=== PATIENT | female | born 1970 | race African-American/Black ===

== ENCOUNTER 2021-01-30 13:09 | Outpatient (REF) | payer MEDICARE, MEDICAID, SELFPAY ==
--- NOTE | ~2021-01-30 | CT_ITS ---
EXAMINATION: CT HEAD WITHOUT CONTRAST CLINICAL INFORMATION: Seizure disorder. COMPARISON: There are no previous exam available for comparison. TECHNIQUE: Contiguous axial imaging was performed from the skull base to vertex without intravenous administration of contrast. This CT examination was performed using dose optimization techniques as appropriate, variously including the following: *Automated exposure control *Adjustment of mA and/or kV according to patient size (this includes techniques or standardized protocols for targeted exams where dose is matched to indication/reason for exam; i.e. extremities or head) *Use of iterative reconstruction technique DLP: 998 mGy-cm FINDINGS: There is no evidence of acute intracranial hemorrhage or territorial infarction. No abnormal mass effect or midline shift is seen. Gonzales to white matter differentiation is well preserved. No extra-axial fluid collections are identified. The ventricles are asymmetric and significantly enlarged. There is a right parietal inserted ventriculoperitoneal shunt catheter with the tip in the right lateral ventricle. 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 There is mild cerebral volume loss. The osseous structures and soft tissues are normal. The mastoid air cells and visualized portions of the paranasal sinuses are well aerated. CT/CT head/brain wo con IMPRESSION: No acute intracranial process seen. Sequelae of Chiari malformation noted. There is asymmetric dilation of lateral ventricles with a right parietal inserted ventricular peritoneal shunt with tip in the right lateral ventricle is noted. There is mild cerebral volume loss.
== END 2021-01-30 13:10 | disposition home or self-care (01) ==
LOC: HO.CT 13:09
PROVIDERS: PCP Internal Medicine; Visit Provider Psychiatry & Neurology Neurology
DX: G40.909 Epilepsy, unspecified, not intractable, without status epilepticus (principal); G91.9 Hydrocephalus, unspecified
CPT/HCPCS: 70450

== ENCOUNTER 2022-02-09 15:49 | Outpatient (REF) | payer MEDICARE, MEDICAID, SELFPAY ==
[2022-02-09 16:34] LABS: Blood Urea Nitrogen 13 mg/dL (9-16); Estimated Glomerular Filt Rate > 60
== END 2022-02-09 15:50 | disposition home or self-care (01) ==
LOC: HO.LAB 15:49
PROVIDERS: Visit Provider Psychiatry & Neurology Neurology
DX: G40.909 Epilepsy, unspecified, not intractable, without status epilepticus (principal)
CPT/HCPCS: 36415; 82565; 84520

== ENCOUNTER 2022-02-13 13:17 | Outpatient (REF) | payer MEDICARE, MEDICAID, SELFPAY ==
--- NOTE | 2022-02-13 13:20 | EEG_ITS ---
The waking background activity consists of a moderate voltage 10 hertz posterior alpha frequency that is seen symmetrically and intermixed anteriorly with low-voltage fast frequencies. A few episodes of right hemisphere slowing in the theta range are seen at 5 to 6 hertz. During sleep, symmetrical frontal central sleep spindles develop over both hemispheres. Arousals are unremarkable. The patient remains asymptomatic. IMPRESSION: This EEG is considered mildly abnormal due to intermittent right hemisphere temporal slowing suggestive of mild cerebral dysrhythmia in the right temporal region. No clearly epileptiform discharges seen. MD SILVA Camacho/LAVERN / [id number]
== END 2022-02-13 13:18 | disposition home or self-care (01) ==
LOC: HO.NEURO 13:17
PROVIDERS: Visit Provider Psychiatry & Neurology Neurology
DX: G40.909 Epilepsy, unspecified, not intractable, without status epilepticus (principal)
CPT/HCPCS: 95708; 95957

== ENCOUNTER 2022-02-14 11:06 | Outpatient (REF) | payer MEDICARE, MEDICAID, SELFPAY ==
--- NOTE | ~2022-02-14 | CT_ITS ---
EXAMINATION: CT HEAD WITH/WITHOUT CONTRAST CLINICAL INFORMATION: Seizure disorder. Epilepsy. COMPARISON: Previous head CT 01/30/2021 TECHNIQUE: Contiguous axial imaging was performed from the skull base to vertex before and after the administration of 85 mL of Omnipaque [address] examination was performed using dose optimization techniques as appropriate, variously including the following: *Automated exposure control *Adjustment of mA and/or kV according to patient size (this includes techniques or standardized protocols for targeted exams where dose is matched to indication/reason for exam; i.e. extremities or head) *Use of iterative reconstruction technique DLP: 01/03/2002 mGy-cm FINDINGS: There is no evidence of an extra-axial collection. There is no evidence of intra-axial or extra-axial hemorrhage. There is a right FINISHING OPERATOR shunt catheter coursing through the right posterior parietal lobe. The tip of the catheter is in the right lateral ventricle. There is question of a disconnection of the shunt catheter in the right parietal lobe for example axial image 22 series 9. This does not appear to be disconnected on sagittal and coronal reconstructed images. The lateral ventricles are again asymmetric and enlarged. There is a Chiari malformation. There is nonspecific periventricular white matter disease. No mass, mass effect, infarct or abnormal enhancement is seen. Review at bone windows is unremarkable. No skull fracture or bone lesion is seen. Visualized paranasal sinuses, mastoid air cells and middle ears are clear. CT/CT head/brain wo/w con IMPRESSION: No acute intracranial findings. Chiari malformation. Right FINISHING OPERATOR shunt catheter. There is question integrity of the right FINISHING OPERATOR shunt catheter with question of a disconnection in the right posterior parietal lobe on the axial images. This does not appear disconnected on the sagittal and coronal reconstructed images. The size of the ventricles are similar to January 2021 exam. Nonspecific periventricular white matter disease.
[2022-02-14] MEDS: iohexoL 350 MG/ML 100 ML INFUS..BTL IV (13:23)
== END 2022-02-14 11:07 | disposition home or self-care (01) ==
LOC: HO.CT 11:06
PROVIDERS: Visit Provider Psychiatry & Neurology Neurology
DX: G40.909 Epilepsy, unspecified, not intractable, without status epilepticus (principal); E04.2 Nontoxic multinodular goiter
CPT/HCPCS: 70470; Q9967

== ENCOUNTER 2022-06-13 14:02 | Outpatient (REF) | payer MEDICARE, MEDICAID, SELFPAY ==
[2022-06-13 15:24] LABS: Alanine Aminotransferase 36 U/L (0-31); Alkaline Phosphatase 53 U/L (39-117); Aspartate Amino Transferase 23 U/L (5-31); Bilirubin Direct 0.2 mg/dL (0.0-0.5); Bilirubin Total 0.3 mg/dL (0.0-1.0); Total Protein 6.7 g/dL (6.5-8.0)
[2022-06-13 15:28] LABS: Valproate 24.9 mcg/mL (50.0-100.0)
== END 2022-06-13 14:03 | disposition home or self-care (01) ==
LOC: HO.LAB 14:02
PROVIDERS: Visit Provider Psychiatry & Neurology Neurology
DX: G40.909 Epilepsy, unspecified, not intractable, without status epilepticus (principal); Z79.899 Other long term (current) drug therapy
CPT/HCPCS: 36415; 80076; 80164

== ENCOUNTER 2025-06-17 14:31 | Outpatient (AMB) | payer MEDICARE, MEDICAID, SELFPAY ==
--- NOTE | 2025-06-17 14:32 | A.OFFVIS_ITS ---
Intake Visit Reasons: 6 mnts /sz Accompanied by: Aunt Allergies No Known Allergies Allergy (Verified 06/17/25 14:33) Medication List - Last Reconciled 06/17/25 by Sunshine Gomez CNP divalproex 500 mg PO TID levetiracetam 1,500 mg PO Q12H topiramate 200 mg PO TID HPI Comments Details: She was doing okay. No seizures. No medication side effects. No missed doses of medication. Mood was okay. Sleep was okay. She had seizure on 10/15/2024. No missed doses of medication. She was seen at [facility] and labs were apparently okay. Before the seizure, she gets blank look on her face for few seconds then falls and passes out for about 1-2 minutes. No convulsions. No tongue bite or incontinence. She is slightly confused for about 1 hour after. She had about 3 seizures between 07/2024-08/2024. She had missed dose of medication before last seizure in 08/2024, unclear if she missed any doses prior to other seizures. Question of possible seizure on 12/05/2023, felt hot while helping to serve food and needed to be assisted into chair and also on 12/15/2023 when water fell out of hand while sitting. No convulsions. No tongue bite or incontinence. No missed doses of medications. Medications given by sister. Typically stares off during seizures. Had seizure in 02/2023, staring and slid down to floor. She was admitted to [facility] with 3-4 seizures on 01/31/23 with undetectable VA levels. Other drugs were not tested. She is now staying with her sister (Ewa) as she just lost her mother. She has congenital hydrocephalus, status post RAILWAY TRACTION LINE WORKER shunt, mild mental retardation, slight dysarthria and balance problems with seizures and headaches. 24-hour ambulatory EEG was borderline abnormal with some sharp transients in the right hemisphere. Her RAILWAY TRACTION LINE WORKER shunt has been working well with no evidence of shunt malfunction. During her seizures, she seems to be in her own world and may be somewhat tremulous but yet responds. She uses butalbital APAP when necessary for headaches. [facility] Medical History (Updated 06/17/25 @ 14:37 by Sunshine Gomez CNP) Hydrocephalus Seizure disorder Tension headache Surgical History (Updated 06/17/25 @ 14:37 by Sunshine Gomez CNP) Ventriculo-peritoneal shunt status Review of Systems Const Denies chills, Denies daytime sleepiness, Denies difficulty sleeping, Denies fatigue, Denies fever(s), Denies frequent falls, Denies headache(s), Denies increased appetite, Denies poor appetite, Denies snoring, Denies weakness, Denies weight gain and Denies weight loss Eyes Denies loss of vision ENT Denies vertigo, Denies dizziness, Denies headache(s) and Denies neck pain Card Denies chest pain at rest, Denies chest pain with activity, Denies syncope, Denies leg edema, Denies palpitations, Denies dyspnea and Denies dyspnea on exertion Resp Denies cough, Denies dyspnea, Denies dyspnea on exertion and Denies snoring GI Denies abdominal pain, Denies constipation, Denies heartburn, Denies diarrhea and Denies nausea Denies urinary frequency, Denies urinary incontinence and Denies urinary urgency Musc Denies abnormal gait, Denies back pain, Denies myalgias, Denies arthralgias, Denies neck pain, Denies numbness and Denies tingling Neuro Denies abnormal gait, Denies vertigo, Denies dizziness, Denies syncope, Denies frequent falls, Denies headache(s), Denies lack of coordination, Denies loss of vision, Denies memory loss, Denies numbness, Denies Other visual disturbances, Denies restless legs, Denies seizure-like activity, Denies tingling, Denies paresthesias, Denies tremor(s) and Denies weakness Psych Denies anxiety, Denies depression, Denies auditory hallucinations, Denies memory loss and Denies visual hallucinations Endo Denies fatigue and Denies palpitations Physical Exam Const Other: General Appearance:? normal, mild hydrocephalus, in no acute distress, Heart:? S1, S2 normal, no murmurs. Lungs:? clear anteriorly and posteriorly. Musculoskeletal:? normal. Extremities:? no edema. Psych:? alert, oriented, cognitive function intact, cooperative with exam. Neuro Other: Abnormal Neurological Findings:?Mild intellectual disability. Mild hydrocephalus with shunt. Pendular nystagmus. Mild dysarthria. Mental Status: alert and oriented X 3. Normal attention, orientation, memory, and affect. Cranial Nerves: Pupils are equal, round, and reactive to light. External ocular muscles are intact with pendular nystagmus, increased on lateral gaze. Visual huntley are full, no ptosis. Face is symmetrical, no facial weakness or droop. Facial sensations are normal. Tongue protrudes in midline. Palate elevates symmetrically. Shoulder shrugging is normal Motor Examination: Normal muscle tone, bulk and strength. No atrophy or fasciculations. No drift of the extended upper extremities. DTR 2+. Plantars are flexor. Straight Leg Raisin degrees. Sensory Exam: Normal light touch, temperature, pinprick, vibration, and joint- position sensations. Rhomberg sign is absent. Coordination: No ataxia. No titubation. Mkvgto-[id number]-rrgm, [id number] test, and rapid alternating movements were normal. Gait Exam: Within normal limits. Cerebellar Signs: [id number] and [id number]-vb-cidg is normal. No dysdiadochokinesia. Extrapyramidal System: No tremor, rigidity with normal facial expressions. No bradykinesia. No bradyphrenia. Normal arm swing and posture. No propulsion or retropulsion. Speech: Somewhat dysarthric speech Assessment & Plan Assessment & Plan (1) Seizure disorder: Code(s): G40.909 - Epilepsy, unspecified, not intractable, without status epilepticus Category: Medical Plan: Continue Depakote 500mg 1 tablet three times a day Continue levetiracetam 1000mg 1.5 tablets twice a day Continue topiramate 100mg 2 tablets three times a day (2) Hydrocephalus: Code(s): G91.9 - Hydrocephalus, unspecified Category: Medical Qualifiers: Hydrocephalus type: unspecified Qualified Code(s): G91.9 - Hydrocephalus, unspecified (3) Ventriculo-peritoneal shunt status: Code(s): Z98.2 - Presence of cerebrospinal fluid drainage device Category: Surgical Plan . Medications: New divalproex (Depakote) 500 mg PO TID 270 tabs 3RF 90 days topiramate 100 mg PO BID 180 tabs 3RF 90 days levetiracetam 1,500 mg (1.5 x 1,000 mg) PO BID 270 tabs 3RF 90 days Discontinued topiramate Discontinued Reason: Order 200 mg PO TID levetiracetam Discontinued Reason: Order 1,500 mg PO Q12H divalproex Discontinued Reason: Order 500 mg PO TID Coding Level of Care Code Est Pt Level 3 (51548) Diagnoses Seizure disorder G40.909 Hydrocephalus, unspecified type G91.9 Hydrocephalus type: unspecified Ventriculo-peritoneal shunt status Z98.2
--- OUTSIDE RECORDS SUMMARY | 2025-06-17 14:41 | XMS_ITS ---
Author Name [facility] Organization Unknown Care Team Organization Name Specialty Phone Email Start Date End Da te [facility] Glendy Sim [facility] 05/03/2023 [facility] Isa Thompson Primary [facility] 10/02/2022 07/13/2024
--- OUTSIDE RECORDS SUMMARY | 2025-06-17 14:41 | XMS_ITS | Clinical Summary ---
Author Organization [facility] Address [address] [place] [address] Phone Care Team Providers Care Insurance Associate Name Role Phone Glendy Sim MD Primary Care Provider [phone] Allergies No known active allergies Medications divalproex (DEPAKOTE) [address] tablet Take 1 tablet (500 mg total) by mouth 3 (three) times a day. 03/30/2024 Active levETIRAcetam (KEPPRA) 1,000 mg tablet Take 1.5 tablets (1,500 mg total) by mouth 2 (two) times a day. Take 1 Tablet by mouth 2 times daily. 12/28/2022 Active topiramate (Topamax) 100 mg tablet Take 2 tablets (200 mg total) by mouth 3 (three) times a day. Take 2 Tabs by mouth 3 times daily. 04/12/2020 Active Active Problems Problem Noted Date Diagnosed Date Pelvic pressure in female 03/25/2025 Postural urinary incontinence 03/25/2025 Incontinence of feces with fecal urgency 025 Intellectual disability 02/10/2025 Tubular adenoma 06/20/2022 Overview (09/09/2024): Repeat in 5 years (due March 2027) Chronic tension type headache 11/30/2019 Obstructive hydrocephalus (CMS/HCC V24, CMS/[facility] V28) 11/30/2019 Overview (09/09/2024): s/p shunt R posterior temporal area 02/14/2018, EEG WNL. Overweight (BMI 25.0-29.9) 02/26/2019 Development delay 03/03/2018 Overview (09/09/2024): Related to childhood hydrocephalus Fibroid, uterine 05/12/2014 Overview (02/10/2025): Assessment & Plan (03/25/2025 11:04 AM EDT): I counseled Abby and her aunt that fibroids are by and large benign and surgical intervention is not necessary unless she is symptomatic. She reports that she does want the uterus out to help with the pressure symptoms. It is also a challenge for her aunt and sister who care for her given it seems to be contributing to more of her urinary and fecal urgency and incontinence. I explained it is not definitive that this is the case, but certainly could be contributing. I explained that this surgery would need to be done through a vertical midline incision and discussed expected risks and recovery. They were counseled that she would need to obtain PCP and Cardiology clearance before she can have surgery given GA increased risk of CT, stroke, VTE. They plan to contact Dr. Sim's office to get this arranged and once cleared, will let us know so we can schedule surgery. I explained that this surgery will not be performed by me as I will be leaving the practice, but that they should schedule a follow up with Dr. Romeo following clearance to discuss scheduling surgery. They voiced understanding and agreed. Given uterine size on exam is unchanged, I do not feel the need to repeat her US. 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 Repeat R breast mammo 11/2014 showed stability. Encounters Date Type Department Care Team Description 06/03/2025 1:28 PM EDT - 06/03/2025 11:59 PM EDT Hospital Encounter Radiology Department - [address] [phone] Encounter for screening mammogram for breast cancer Discharge Disposition: Home or Self Care 05/11/2025 1:15 PM EDT Office Visit Orthopedic Surgery - [address] [phone] Ford Guerrero, JUANJOSE Bunion, right foot (Primary Dx); Hammertoes of both feet; Pain in toes of both feet; Dermatophytosis, nail 03/24/2025 2:15 PM EDT Office Visit Obstetrics and Gynecology - [address] [phone] Isa Thompson MD Intramural and subserous leiomyoma of uterus (Primary Dx); Pelvic pressure in female; Postural urinary incontinence; Incontinence of feces with fecal urgency from Last 3 Months Immunizations Name Administration Dates Next Due Influenza Quadravalent, MDCK , 0.5ml, preservative free (Flucelvax) 6mo and older 11/28/2021,10/13/2019,09/10/2018 Influenza Quadravalent, MDCK , 0.5ml, with preservative (Flucelvax) 6mo and older 08/28/2017 Influenza trivalent, 0.5mL, preservative free (Fluarix; FluLaval; Fluzone) ages 6mo and older (Afluria) 3 years and older 12/15/2022,09/17/2016,09/20/2015,2013 Pfizer SARS-CoV-2 COVID-19, mRNA, LNP-S, preservative free 11/08/2022 Tdap Tetanus diptheria acell ular pertussis (Boostrix; Adacel) 7yo and older 02/26/2019 Surgical History Surgery Date Site/Laterality Comments CHOLECYSTECTOMY 10/2006 OTHER SURGICAL HISTORY 02/14/2018 Right s/p shunt in R posterior temporal area COLONOSCOPY 04/04/2022 tubular adenoma; repeat 5 years SCREENING MAMMOGRAM 05/22/2024 Bilateral Medical History Medical History Date Comments Obesity (BMI 30-39.9) 02/26/2019 Obstructive hydrocephalus ([facility]/HCC V24, [facility] V28) 11/30/2019 s/p shunt R posterior tempor al area 02/14/2018, EEG WNL. Fibroid, uterine 05/12/2014 Development delay 03/03/2018 Related to chi ldhood hydrocephalus Seizure disorder (CMS/HCC V2 4, CMS/HCC V28) 07/24/2006 S/P ACCOUNTING CLERK shunt for hydrocephal us as a child Developmental delay Chronic tension type headache 11/30/2019 Tubular adenoma 06/20/2022 04/04/22 repeat C N 5 years Family History Medical History Relation Name Comments Diabetes Aunt paternal Heart attack Father EToH abuse Other: MVA-related Maternal Grandfather Lung cancer Maternal Grandmother Heart attack Paternal Grandfather diabete s Other: Hit by bus Paternal Grandmother Uterine cancer Sister x 1 asthma/COPD, HTN, CEDRIC, CHF Relation Name Status Comments Aunt paternal Brother x 1 Alive Father Maternal Grandfather Maternal Grandmother Mother Paternal Grandfather Paternal Grandmother Sister x 1 Alive Social History Tobacco Use Types Packs/Day Years Used Date Smoking Tobacco: Never Smokeless Tobacco: Never Tobacco Cessation:Counseling Given: Not Answered Alcohol Use Standard Drinks/Week Comments No 0 (1 standard drink = 0.6 oz pur e alcohol) Comments No Sex and Gender Information Value Date Recorded Sex Assigned at Not on file Legal Sex Female 8:30 PM EST Gender Identity Not on file Sexual Orientation Not on file Obstetrics History Para Term AB IAB SAB Ectopic Multiple Livin g Live Births 0 0 0 0 0 0 0 0 0 0 0 Last Filed Vital Signs Vital Sign Reading Time Taken Comments Blood Pressure 114/84 03/24/2025 2:24 PM EDT Pulse 83 03/24/2025 2:24 PM EDT Temperature 36.5 C (97.7 F) 02/17/2025 2:51 PM EDT Respiratory Rate 12 03/24/2025 2:24 PM EDT Oxygen Saturation 99% 02/17/2025 2:51 PM EDT Inhaled Oxygen Concentration - - Weight 78.5 kg (173 lb 1 oz) 05/11/2025 1:09 PM EDT Height 172.7 cm (5' 7.99 ) 05/11/2025 1:09 PM ED T Body Mass Index 26.32 05/11/2025 1:09 PM EDT Plan of Treatment Upcoming Encounters Date Type Department Care Team (Late st Contact Info) Description 07/13/2025 2:30 PM EDT Office Visit Orthopedic Surgery - [place] [address] [phone] Ford Guerrero DPM [address] [address] 02/28/2026 3:00 PM EDT Office Visit Adult Medicine [facility] [address] [place] [address] Glendy Sim MD [address] [place] [address] Health Maintenance Due Date Last Done Comments Hepatitis B Vaccines (1 of 3 - 19+ 3-dose series) 1990 Pneumococcal Vaccine: 50+ Years (1 of 1 - PCV) 2021 Zoster Vaccines (1 of 2) 2021 HIV Screening 11/03/2022 Medicare Annual Wellness Visit 11/03/2022 Social Influencers of Health Screening 11/03/2022 COVID-19 Vaccine ( season) 2024 11/08/2022, 05/10/2021, 04/18/2021 Depression Screening 11/25/2024 02/18/2024 Influenza Vaccine (#1) 2025 3, 11/28/2021, 10/13/2019, Additional history exists Cervical Cancer Screening: HPV 03/12/2027 03/12/2022 Colorectal Cancer Screening: Colonoscopy 04/04/2027 04/04/2022 Breast Cancer Screening 06/03/2027 06/03/20 25, 05/22/2024, 05/22/2024, Additional history exists Cholesterol Screening (Lipid Panel) 07/24/2027 07/24/2022 DTaP,Tdap,and Td Vaccines (2 - Td or Tdap) 02/26/2029 02/26/2019 Hepatitis C Screening Completed 07/24/2022 HIB Vaccines Aged Out No longer eligi ble based on patient's age to complete this topic HPV Vaccines Aged Out No longer eligi ble based on patient's age to complete this topic Hepatitis A Vaccines Aged Out No long er eligible based on patient's age to complete this topic IPV Vaccines Aged Out No longer eligi ble based on patient's age to complete this topic MMR Vaccines Aged Out No longer eligi ble based on patient's age to complete this topic Meningococcal ACWY Vaccine Aged Out N o longer eligible based on patient's age to complete this topic Meningococcal B Vaccine Aged Out No l onger eligible based on patient's age to complete this topic RSV Immunization Patients Under 20 months Aged Out No longer eligible based on patient's age to complete this topic Varicella Vaccines Aged Out No longer eligible based on patient's age to complete this topic Procedures Procedure Name Priority Date/Time Associated Diagnosis Comments MG MAMMO DIGITAL SCREENING W LEANDRO BILAT Routine 06/03/2025 1:43 PM EDT Encounter for screening mammogram for breast cancer DEPRESSION SCREENING Routine 02/18/2024 HEPATITIS C SCREENING Routine 07/24/2022 LIPID PANEL Routine 07/24/2022 COLONOSCOPY Routine 04/04/2022 HPV Routine 03/12/2022 from Last 3 Months or Most Recently Relevant to Health Maintenance Results * MG Mammo Digital Screening w Leandro bilat (06/03/2025 1:43 PM EDT) Anatomical Region Laterality Modality Breast Bilateral Mammography 06/07/2025 10:4 8 AM EDT Impressions 06/07/2025 10:49 AM EDT No mammographic evidence of malignancy. BREAST DENSITY: B - There are scattered areas of fibroglandular density. BI-RADS CATEGORY: 1 - NEGATIVE RECOMMENDATION: Screening bilateral mammogram is recommended in 1 year. MAMMO LOCATION: [facility], [address] [place] [address], [id number], . -------- FINAL REPORT -------- Dictated By: America Cervantes Dictated Date: 06/07/2025 10:48 ET Assigned Physician: America Cervantes Reviewed and Electronically Signed By: America Cervantes Signed Date: 06/07/2025 10:49 ET Workstation ID: [id number] Transcribed By: Self Edit Transcribed Date: 06/07/2025 10:48 ET Narrative 06/07/2025 10:49 AM EDT EXAM: Screening Mammogram CLINICAL: 54 years old, Female, routine annual exam. COMPARISON: 05/22/2024 and as far back as 08/17/2020 TECHNIQUE: Bilateral MLO and CC views were obtained digitally with 3-D mammogram (digital breast tomosynthesis). Computer-aided detection was utilized in evaluation of this exam (CAD). FINDINGS: No new suspicious mass, architectural distortion, or suspicious calcifications. Procedure Note America Cervantse MD - 06/07/2025 EXAM: Screening Mammogram CLINICAL: 54 years old, Female, routine annual exam. COMPARISON: 05/22/2024 and as far back as 08/17/2020 TECHNIQUE: Bilateral MLO and CC views were obtained digitally with 3-Dmammogram (digital breast tomosynthesis). Computer-aided detection wasutilized in evaluation of this exam (CAD). FINDINGS: No new suspicious mass, architectural distortion, or suspiciouscalcifications. IMPRESSION: No mammographic evidence of malignancy. BREAST DENSITY: B - There are scattered areas of fibroglandular density. BI-RADS CATEGORY: 1 - NEGATIVE RECOMMENDATION: Screening bilateral mammogram is recommended in 1 year. MAMMO LOCATION: [facility], [address] [place] [address], [id number], . -------- FINAL REPORT -------- Dictated By: America Cervantes Dictated Date: 06/07/2025 10:48 ET Assigned Physician: America Cervantes Reviewed and Electronically Signed By: America Cervantes Signed Date: 06/07/2025 10:49 ET Workstation ID: [id number] Transcribed By: Self Edit Transcribed Date: 06/07/2025 10:48 ET Self Referral [facility] IMG BI PROCEDURES Final Resu lt * Depression Screening (02/18/2024) [facility] Depression Screening Abstracted [facility] Provider HEALTH MAINTENANCE Final Result * Hepatitis C Screening (07/24/2022) [facility] Hepatitis C Screening Abstracted [facility] Provider HEALTH MAINTENANCE Final Result * Lipid panel (07/24/2022) [facility] LDL/HDL Ratio 3 0 - 4 Triglycerides 37 0 - 150 mg/dL Cholesterol 154 0 - 200 mg/dL HDL 57 >=40 mg/dL LDL Cholesterol 90 0 - 100 mg/dL Blood Venous blood specimen / Unknown Result [facility] Provider LAB BLOOD ORDERABLES Nila l Result * Colonoscopy (04/04/2022) [facility] Colonoscopy No interpretation with ,abstracted Anatomical Region Laterality Modality Other Result [facility] Provider HEALTH MAINTENANCE Final Result * Cervical Cancer Screening: HPV (03/12/2022) [facility] Cervical Cancer Screening: HPV No interpretation with Negative, abstracted Result [facility] Provider HEALTH MAINTENANCE Final Result from Last 3 Months or Most Recently Relevant to Health Maintenance Insurance MEDICARE MEDICAID - [place] Care Teams Insurance Associate Relationship Specialty Start Date End Date Glendy Sim MD [address] [place] [id number] PCP - General Internal Medicine 11/27/21
== END 2025-06-17 14:44 | disposition home or self-care (01) ==
LOC: HO.HSM 14:32
PROVIDERS: PCP Internal Medicine; Referring Provider Internal Medicine Rheumatology; Visit Provider Registered Nurse
DX: G40.909 Epilepsy, unspecified, not intractable, without status epilepticus (principal); G91.9 Hydrocephalus, unspecified; Z98.2 Presence of cerebrospinal fluid drainage device
CPT/HCPCS: 99213

== ENCOUNTER → 2025-06-17 14:31 | Outpatient (BNVA) | payer MEDICARE, MEDICAID, SELFPAY | PROVIDERS: PCP Internal Medicine; Referring Provider Internal Medicine Rheumatology; Visit Provider Registered Nurse | DX: G40.909 Epilepsy, unspecified, not intractable, without status epilepticus (principal); G91.9 Hydrocephalus, unspecified; Z98.2 Presence of cerebrospinal fluid drainage device | CPT/HCPCS: 99212 ==